=== PATIENT | male | born 1985 | race Caucasian/White ===

== ENCOUNTER 2018-11-03 23:46 | Emergency (ER) | payer SELFPAY ==
[~2018-11-03] VITALS: Ht 182.9 cm; Wt 81.8 kg
[2018-11-04 00:30] VITALS: BP 127/76
[2018-11-04] MEDS ORDERED: SODIUM CHLORIDE 0.9% 100 ML ONE (01:57)
[2018-11-04] MEDS ORDERED: IOVERSOL 350 MG/ML 100 ML VIAL ONE (01:57)
== END 2018-11-04 02:24 | disposition home or self-care (01) ==
LOC: EMS 23:47
DX: M25.571 Pain in right ankle and joints of right foot (principal); M25.511 Pain in right shoulder; M54.2 Cervicalgia; F12.90 Cannabis use, unspecified, uncomplicated; Z88.6 Allergy status to analgesic agent; V49.40XA Driver injured in collision with unspecified motor vehicles in traffic accident, initial encounter; Y93.89 Activity, other specified; Y92.89 Other specified places as the place of occurrence of the external cause; Y99.8 Other external cause status
CPT/HCPCS: 99283; J7050; Q9967